=== PATIENT | female | born 1960 | race Caucasian/White ===

== ENCOUNTER 2020-05-28 20:09 | Emergency (ER) | payer OTHER, SELFPAY ==
[2020-05-28] VITALS (16 sets, daily range): BP systolic 140–188; BP diastolic 74–109; PULSE 70–91; RESP 16–35; TEMP 36.9; O2SAT 82–98; BMI 27.4
--- NOTE | 2020-05-28 20:09 | XRR_ITS ---
PROCEDURE INFORMATION: Exam: XR Chest, 1 View Exam date and time: 05/28/2020 8:32 PM Age: 59 years old Clinical indication: Dyspnea; Additional info: Uri TECHNIQUE: Imaging protocol: XR of the chest Views: 1 view. COMPARISON: No relevant prior studies available. FINDINGS: Lungs: Calcified granuloma in the the right lower lobe. Patchy atelectasis versus mild pneumonia in the left lower lobe. Scarring in both lungs. Pleural space: No pleural effusion. No pneumothorax. Heart/Mediastinum: The cardiac silhouette is mildly enlarged. Mediastinal contours are unremarkable. Vasculature: Vascular calcifications in the aorta. Bones/joints: Bones are diffusely osteopenic. Degenerative changes in the spine and shoulders. XR/XR chest 1V portable [id number] IMPRESSION: 1. Patchy atelectasis versus mild pneumonia in the left lower lobe. Recommend clinical correlation. Recommend followup chest x-ray to ensure resolution. 2. Incidental/nonacute findings are listed in the report.
--- NOTE | 2020-05-28 20:51 | ECG_ITS ---
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 Measurements Intervals [place] Rate: 72 P: 75 MT: 156 QRS: 37 QRSD: 93 T: 81 QT: 412 QTc: 453 Interpretive Statements SINUS RHYTHM NONSPECIFIC ST & T-WAVE ABNORMALITY No previous ECG available for comparison Electronically Signed On 05-29-2020 12:43:16 CDT by Katelyn Pollock M.D. [id number]
[2020-05-28 21:02] LABS: Basophils % 0.3 %; Eosinophils # 0.1 10^3/uL (0.0-0.8); Eosinophils % 0.9 %; Hematocrit 42.4 % (37.0-47.0); Hemoglobin 13.5 g/dL (11.5-15.3); Lymphocytes # 1.9 10^3/uL (0.8-4.8); Lymphocytes % 25.3 %; Mean Corpuscular HGB Conc 31.8 g/dL (30.0-36.0); Mean Corpuscular Hemoglobin 28.8 pg (28.0-34.0); Mean Corpuscular Volume 90.6 fL (81-99); Mean Platelet Volume 9.8 fL (7.4-10.4); Monocytes # 0.9 10^3/uL (0.2-0.9); Monocytes % 11.3 %; Neutrophils # 4.72 10^3/uL (1.8-7.7); Neutrophils % 61.8 %; Nucleated Red Blood Cells % 0 %; Platelet Count 325 10^3/cmm (130-400); Red Blood Count 4.68 10^6/uL (4.1-5.3); Red Cell Distribution Width 13.7 % (12.1-15.1); White Blood Count 7.6 10^3/uL (4.0-10.0)
[2020-05-28 21:15] LABS: Lactic Sepsis W/Reflex 0.8 mmol/L (0.5-2.2)
--- NOTE | 2020-05-28 21:20 | ED_ITS ---
HPI - SOB/Dyspnea General: Chief Complaint: Shortness of Breath/Dyspnea Stated Complaint: UPPER RESP ISSUES Time Seen by Provider: 05/28/20 20:26 History of Present Illness: HPI Narrative: 59-year-old female who came by airplane from [place] 2 weeks ago, began to get sick 3 days ago. She has had cough, shortness of breath, and fevers up to 102 at home. She has had some yellow sputum with her cough. No known exposure to coronavirus. MD elicited complaint: shortness of breath Associated symptoms: Reports fever(s); Deny abdominal pain, chest pain, dizziness, nausea, palpitations or vomiting Review of Systems Const: Reports: fever(s) and chills Eyes: Denies: blurry vision ENMT: Reports: post nasal drip; Denies: swelling of lips/tongue, bleeding gums or sinus pain Card: Denies: chest pain, palpitations, irregular heart rhythm or swelling of feet/ankles Resp: Reports: dyspnea and productive cough; Denies: non-productive cough or wheezing GI: Denies: abdominal pain, nausea or vomiting : Denies: dysuria or hematuria Musc: Reports: back pain; Denies: neck pain Skin/Breast: Denies: rash or pruritus Neuro: Denies: headache(s), dizziness or vertigo Psych: Denies: anxiety Physical Exam Const: GENERAL APPEARANCE: well developed ORIENTATION/CONSCIOUSNESS: Yes or iented to person, Yes oriented to place and Yes oriented to time HENMT: COMMON NORMALS: normocephalic, external ears normal and Normal external nose present HEAD & SCALP: normocephalic FACE & SINUS: normal facial exam NOSE: Normal external nose present and No nasal discharge present EXTERNAL EAR: Yes external ears normal MOUTH: tongue normal THROAT: posterior oropharynx normal; no peritonsillar mass Eye: COMMON NORMALS: Equal, round and reactive pupils present, EOMs intact bilaterally and conjunctivae normal EYELID: eyelids normal CONJUNCTIVA: Yes conjunctivae normal PUPIL: Yes Equal, round and reactive pupils present Neck/C-Spine: GENERAL: No tracheal deviation Chest: COMMONS NORMALS: normal inspection of the chest CHEST: No tenderness Resp: COMMON NORMALS: clear to auscultation bilaterally EFFORT & INSPECTION: Yes tachypneic, Yes respiratory distress, No retractions, No uses accessory muscles and No tracheal deviation AUSCULTATION: clear to auscultation bilaterally, no rhonchi, no wheezes and lung sounds not diminished Cardio: COMMON NORMALS: regular rate and regular rhythm RATE: regular rate RHYTHM: regular rhythm HEART SOUNDS: no murmurs PERIPHERAL PULSES: radial pulses present GI: INSPECTION: No abdominal distension AUSCULTATION: No Hyperactive bowel sounds present and No Hypoactive bowel sounds present PALPATION: No Guarding due to palpation present (GI) and No Rigid due to palpation PERCUSSION: no dullness to percussion and no tympanic to percussion Neuro: SENSORIUM/ORIENTATION: Yes oriented to person, Yes oriented to place and Yes oriented to time Psych: COMMON NORMALS: mental status grossly normal Skin: COMMON NORMALS: no rashes or lesions noted GENERAL SKIN EXAM: no rashes or lesions noted Course Vital Signs: Vital signs: Vital Signs Temperature 99.6 F 05/29/20 00:37 Pulse Rate 80 05/29/20 00:37 Respiratory Rate 18 05/29/20 00:37 Blood Pressure 154/80 05/29/20 00:37 Pulse Oximetry 96 05/29/20 00:37 MDM - SOB/Dyspnea MDM Narrative: Medical decision making narrative: 59-year-old patient now on 4 L of oxygen. Saturations are 96 to 97%. Her blood pressure is improved after amlodipine and hydralazine. Blood pressure is 158/79. She feels much better on oxygen. Chest x-ray reveals left lower lobe infiltrate with some patchy haziness bilaterally in the periphery. Her potassium is mildly low. Her other laboratory is benign. She has tested for coronavirus, and is positive. She has a chest x-ray consistent with COVID-19. She is significantly hypoxic. We do have dexamethasone at this institution, but we are unable to get remdesivir at this point. Because of this, the likelihood it will be needed for treatment, she will be transferred to the COVID-19 unit at [facility] in [place]. Dr. Vargas has accepted. Lab Data: Labs: Lab Results 05/28/20 05/28/20 05/28/20 Range/Units 20:50 20:50 20:50 WBC 7.6 (4.0-10.0) 10^3/ uL RBC 4.68 (4.1-5.3) 10^6/u L Hgb 13.5 (11.5-15.3) g/dL Hct 42.4 (37.0-47.0) % MCV 90.6 (81-99) fL MCH 28.8 (28.0-34.0) pg MCHC 31.8 (30.0-36.0) g/dL RDW 13.7 (12.1-15.1) % Plt Count 325 (130-400) 10^3/c mm MPV 9.8 (7.4-10.4) fL Neut % (Auto) 61.8 % Lymph % (Auto) 25.3 % Clinton % (Auto) 11.3 % Eos % (Auto) 0.9 % Baso % (Auto) 0.3 % Neut # (Auto) 4.72 (1.8-7.7) 10^3/u L Lymph # (Auto) 1.9 (0.8-4.8) 10^3/u L Clinton # (Auto) 0.9 (0.2-0.9) 10^3/u L Eos # (Auto) 0.1 (0.0-0.8) 10^3/u L Baso # (Auto) 0.0 (0.0-0.1) 10^3/u L Nucleated RBC % (a uto) 0 % Nucleated RBCs # 0.0 /100WBC Specimen Type Sample Site ABG pH (7.35-7.45) ABG pCO2 (35-45) mmHg ABG pO2 (80.0-100.0) mmH g ABG HCO3 (22-26) mmol/L ABG Base Excess (-2.0-2.0) mmol/ L Elder Test Hematocrit (37-47) % Hgb O2 Saturation (95-100) % Carboxyhemoglobin (0.4-20.1) %THgb Methemoglobin (0.4-1.5) % Total Hemoglobin (12-16) g/dL O2 Delivery Device O2 Liters/Min % FiO2 % Detector Car Operator ID Sodium 137 (136-145) mmol/L Potassium 3.1 L (3.5-5.1) mmol/L Chloride 97 L (98-107) mmol/L Carbon Dioxide 31 H (22-29) mmol/L Anion Gap 12.1 (5-19) BUN 11 (8-23) mg/dL Creatinine 0.8 (0.5-0.9) mg/dL GFR Calculation 72.9 L (90-130) mL/min Glucose 112 (65-115) mg/dL Calculated Osmolal ity 281 L (285-295) mOsm/k g Lactic Acid 0.8 (0.5-2.2) mmol/L Calcium 8.7 (8.5-10.5) mg/dL Total Bilirubin 0.5 (0.15-1.2) mg/dL AST 74 H (0-32) U/L ALT 55 H (0-33) U/L Alkaline Phosphata se 79 (35-105) IU/L C-Reactive Protein (0.0-4.9) mg/L NT-Pro-B Natriuret Pep 977 H (0-125) pg/mL Total Protein 7.3 (6.6-8.7) g/dL Albumin 3.8 (3.5-5.2) g/dL Globulin 3.5 (1.3-4.6) g/dL Procalcitonin (0-0.5) ng/mL SARS-CoV-2 Ag (Rap id) (Negative) 05/28/20 05/28/20 05/28/20 Range/Units 20:50 21:00 21:20 WBC (4.0-10.0) 10^3/ uL RBC (4.1-5.3) 10^6/u L Hgb (11.5-15.3) g/dL Hct (37.0-47.0) % MCV (81-99) fL MCH (28.0-34.0) pg MCHC (30.0-36.0) g/dL RDW (12.1-15.1) % Plt Count (130-400) 10^3/c mm MPV (7.4-10.4) fL Neut % (Auto) % Lymph % (Auto) % Clinton % (Auto) % Eos % (Auto) % Baso % (Auto) % Neut # (Auto) (1.8-7.7) 10^3/u L Lymph # (Auto) (0.8-4.8) 10^3/u L Clinton # (Auto) (0.2-0.9) 10^3/u L Eos # (Auto) (0.0-0.8) 10^3/u L Baso # (Auto) (0.0-0.1) 10^3/u L Nucleated RBC % (a uto) % Nucleated RBCs # /100WBC Specimen Type Arterial Sample Site Radial, left ABG pH 7.47 H (7.35-7.45) ABG pCO2 43.0 (35-45) mmHg ABG pO2 81.1 (80.0-100.0) mmH g ABG HCO3 31.1 H (22-26) mmol/L ABG Base Excess 6.5 H (-2.0-2.0) mmol/ L Elder Test Pos Hematocrit 41.5 (37-47) % Hgb O2 Saturation 93.7 L (95-100) % Carboxyhemoglobin 3.1 (0.4-20.1) %THgb Methemoglobin 0.7 (0.4-1.5) % Total Hemoglobin 13.6 (12-16) g/dL O2 Delivery Device Nc O2 Liters/Min 4.0 % FiO2 36.0 % Detector Car Operator ID [id number] Sodium (136-145) mmol/L Potassium (3.5-5.1) mmol/L Chloride (98-107) mmol/L Carbon Dioxide (22-29) mmol/L Anion Gap (5-19) BUN (8-23) mg/dL Creatinine (0.5-0.9) mg/dL GFR Calculation (90-130) mL/min Glucose (65-115) mg/dL Calculated Osmolal ity (285-295) mOsm/k g Lactic Acid (0.5-2.2) mmol/L Calcium (8.5-10.5) mg/dL Total Bilirubin (0.15-1.2) mg/dL AST (0-32) U/L ALT (0-33) U/L Alkaline Phosphata se (35-105) IU/L C-Reactive Protein 56.0 H (0.0-4.9) mg/L NT-Pro-B Natriuret Pep (0-125) pg/mL Total Protein (6.6-8.7) g/dL Albumin (3.5-5.2) g/dL Globulin (1.3-4.6) g/dL Procalcitonin 0.06 (0-0.5) ng/mL SARS-CoV-2 Ag (Rap id) Positive H (Negative) Discharge Plan Discharge Patient Disposition: Xfer Other Clinical Impression: COVID-19 Respiratory failure Qualifiers: Chronicity: acute Respiratory failure complication: hypoxia Qualified Code(s): J96.01 - Acute respiratory failure with hypoxia Interventions: ED Discharge Assessment Last Done: 05/29/20 00:37 ED Charges Last Done: 05/29/20 00:37 Discharge Date/Time: 05/29/20 01:05 Coding Level of Care Code ED [employer] 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
[2020-05-28 21:25] LABS: Alanine Aminotransferase 55 U/L (0-33); Albumin Level 3.8 g/dL (3.5-5.2); Alkaline Phosphatase 79 IU/L (35-105); Anion Gap 12.1 (5-19); Aspartate Amino Transferase 74 U/L (0-32); Blood Urea Nitrogen 11 mg/dL (8-23); Calcium 8.7 mg/dL (8.5-10.5); Carbon Dioxide 31 mmol/L (22-29); Chloride 97 mmol/L (98-107); Globulin 3.5 g/dL (1.3-4.6); Glomerular Filtration Rate 72.9 mL/min (90-130); Glucose 112 mg/dL (65-115); NT Pro B Type Natriuretic Pept 977 pg/mL (0-125); Osmolality Calculated 281 mOsm/kg (285-295); Potassium 3.1 mmol/L (3.5-5.1); Sodium 137 mmol/L (136-145); Total Bilirubin 0.5 mg/dL (0.15-1.2); Total Protein 7.3 g/dL (6.6-8.7)
[2020-05-28 21:26] LABS: SARS Covid-2 Antigen Positive (Negative)
[2020-05-28 21:30] LABS: ABG PH Result 7.47 (7.35-7.45); Arterial Blood Gas Hematocrit 41.5 % (37-47); Base Excess ABG 6.5 mmol/L (-2.0-2.0); Blood Gas Allen Test Pos; Blood Gas Sample Site Radial, left; Blood Gas Sample Type Arterial; Carboxyhemoglobin 3.1 %THgb (0.4-20.1); HCO3 ABG 31.1 mmol/L (22-26); HGB O2 Sat 93.7 % (95-100); Methemoglobin 0.7 % (0.4-1.5); Oxygen Device NC; PO2 ABG 81.1 mmHg (80.0-100.0); Total Hemoglobin 13.6 g/dL (12-16)
[2020-05-28 21:46] LABS: Slide Review Slide Review Perform
[2020-05-28] MEDS: hyDRALAzine 20 mg/mL INJ 1 mL 10 MG IVP (22:09)
[2020-05-28] MEDS: amlodipine 10 mg Tablet PO (22:10)
[2020-05-28 22:35] LABS: Procalcitonin 0.06 ng/mL (0-0.5)
[2020-05-29] VITALS: BP 150/78; PULSE 75; RESP 20; O2SAT 93
[2020-05-29 00:15] VITALS: BP 143/81; PULSE 77; RESP 19; O2SAT 91
[2020-05-29 00:30] VITALS: BP 154/80; O2SAT 89
[2020-05-29 00:37] VITALS: BP 154/80; PULSE 80; RESP 18; TEMP 37.6; O2SAT 96
== END 2020-05-29 01:05 | disposition other institution (70) ==
PROVIDERS: Emergency Provider Emergency Medicine
DX: U07.1 COVID-19 (principal); J96.01 Acute respiratory failure with hypoxia
CPT/HCPCS: 12345; 36600; 71045; 80053; 82805; 83605; 83880; 84145; 85025; 86140; 87426; 93005; 96374; 99284; 99285; J0360

== ENCOUNTER 2020-06-04 15:49 | Emergency (ER) | payer SELFPAY ==
[2020-06-04 15:58] VITALS: BP 127/78; PULSE 59; RESP 18; TEMP 36.4; O2SAT 94; BMI 21.9
--- NOTE | 2020-06-04 16:14 | CTR_ITS ---
PROCEDURE INFORMATION: Exam: CT Abdomen And Pelvis Without Contrast Exam date and time: 06/04/2020 5:00 PM Age: 59 years old Clinical indication: Constipation and nausea; Prior surgery; Surgery date: 6+ months; Surgery type: Appy, gb, hyst; Patient HX: C/O nausea and constipation; Additional info: Constipation, nausea TECHNIQUE: Imaging protocol: Computed tomography of the abdomen and pelvis without contrast. Radiation optimization: All CT scans at this facility use at least one of these dose optimization techniques: automated exposure control; mA and/or kV adjustment per patient size (includes targeted exams where dose is matched to clinical indication); or iterative reconstruction. COMPARISON: No relevant prior studies available. RADIATION DOSE METRICS: Total DLP (mGy-cm): 483.33 FINDINGS: Lungs: 5 mm left lower lobe nodule. 4 mm lingular nodule. Calcified granulomas in the right lower lobe. Liver: Subcentimeter hypodensities in the liver are too small to characterize but most likely cysts. No follow-up recommended. Gallbladder and bile ducts: Cholecystectomy. Dilatation of the extrahepatic bile ducts is most likely reservoir effect. Pancreas: Normal. No ductal dilation. Spleen: Calcified granulomas in the spleen. Adrenals: Normal. No mass. Kidneys and ureters: Normal. No hydronephrosis. Stomach and bowel: Diverticulosis of the colon without diverticulitis. The stomach and small bowel are unremarkable. Stool in the proximal and transverse colon. The distal colon is decompressed. Appendix: The appendix is absent. Intraperitoneal space: Unremarkable. No free air. No significant fluid collection. Vasculature: Atherosclerotic calcifications. No aneurysm. Lymph nodes: Unremarkable. No enlarged lymph nodes. Bladder: Wynn catheter in a decompressed urinary bladder with wall thickening and gas bubbles. Reproductive: Unremarkable as visualized. Bones/joints: Degenerative spine. No compression fracture. Soft tissues: Unremarkable. CT/CT abdomen pelvis wo con [id number] IMPRESSION: 1. Wall thickening of the urinary bladder could relate to nondistention, but cystitis is not excluded. 2. Diverticulosis of the distal colon. 3. Pulmonary nodules measuring up to 5 mm. For patients at low risk (minimal or absent history of smoking and of other known risk factors), no routine follow-up is indicated. For patients at high risk (history of smoking or of other known risk factors), consider optional CT at 12 months. (MacMahon, et al., Fleischner Society, 2017) Radiation Dose CTDIVOL = (mGy): DLP = 483.33 (mGy-cm)
--- NOTE | 2020-06-04 16:14 | PC.NURSE ---
pt came in CPR in progress. Code continued. See code sheet. TOD [id number]
[2020-06-04 16:47] LABS: Basophils % 0.2 %; Eosinophils # 0.1 10^3/uL (0.0-0.8); Eosinophils % 0.3 %; Hematocrit 47.5 % (37.0-47.0); Hemoglobin 15.6 g/dL (11.5-15.3); Lymphocytes # 3.4 10^3/uL (0.8-4.8); Mean Corpuscular HGB Conc 32.8 g/dL (30.0-36.0); Mean Corpuscular Hemoglobin 28.9 pg (28.0-34.0); Mean Platelet Volume 10.2 fL (7.4-10.4); Monocytes # 1.7 10^3/uL (0.2-0.9); Monocytes % 8.5 %; Neutrophils # 14.52 10^3/uL (1.8-7.7); Neutrophils % 72.8 %; Nucleated Red Blood Cells % 0 %; Platelet Count 567 10^3/cmm (130-400); Red Cell Distribution Width 13.6 % (12.1-15.1); White Blood Count 19.9 10^3/uL (4.0-10.0)
[2020-06-04 17:13] LABS: Alanine Aminotransferase 59 U/L (0-33); Albumin Level 4.1 g/dL (3.5-5.2); Alkaline Phosphatase 85 IU/L (35-105); Anion Gap 13.9 (5-19); Aspartate Amino Transferase 35 U/L (0-32); Carbon Dioxide 29 mmol/L (22-29); Chloride 95 mmol/L (98-107); Creatinine Clr Calc Pharmacy 53.7121; Globulin 3.5 g/dL (1.3-4.6); Glomerular Filtration Rate 63.7 mL/min (90-130); Glucose 229 mg/dL (65-115); Potassium 3.9 mmol/L (3.5-5.1); Sodium 134 mmol/L (136-145); Total Protein 7.6 g/dL (6.6-8.7)
[2020-06-04 17:31] LABS: Blood Urea Nitrogen 38 mg/dL (8-23); Calcium 9.6 mg/dL (8.5-10.5); Osmolality Calculated 283 mOsm/kg (285-295)
[2020-06-04 17:32] LABS: Total Bilirubin 0.5 mg/dL (0.15-1.2)
[2020-06-04] MEDS: sodium chloride 0.9% 1,000 ML 999 ML IV (17:45)
[2020-06-04 17:49] LABS: Glucose Urine UA Norm (Normal); Ketones Urine 1+ (Negative); Protein Urine 1+ (Negative); Specific Gravity, Urine 1.025 (1.005-1.030); Urine Color Yellow (Yellow); pH Urine 5 (5-7)
[2020-06-04 17:50] LABS: Add Urine Microscopic? YES; Bilirubin Urine 1+ (NEGATIVE); Blood Urine 3+ (Negative); Leukocyte Esterase Urine 1+ (Negative); Nitrate Urine Negative (Negative); Urobilinogen Urine 1 mg/dL (Negative)
[2020-06-04 17:53] LABS: RBC Urine 40-50 /hpf (0-2)
[2020-06-04 17:54] LABS: Add Urine Culture? Yes; Bacteria Urine 4+; Hyaline Casts Urine 0-4; WBC Urine 55-80 /hpf (0-5)
[2020-06-04 18:00] VITALS: BP 146/75; PULSE 51; O2SAT 92
[2020-06-04] MEDS: cefTRIAXone 1,000 MG in sodium chloride 0.9% (plus) 50 ML 100 MG IV (18:49)
--- NOTE | 2020-06-04 19:42 | W.ED.FEMALGU ---
HPI - Female Genitourinary General: Chief complaint: Urogenital-Female Stated complaint: COVID POSITIVE/COMPLICATIONS Time Seen by Provider: 06/04/20 16:01 History of Present Illness: HPI Narrative: This patient is a 59-year-old female who presents to the emergency department with complaints of difficulty urinating and difficulty having bowel movements. She was seen in this facility about a week ago and was transferred to [facility] in [place] where she was diagnosed with COVID-19 infection causing respiratory failure. She was discharged from [facility] yesterday but the patient states that she has not had a bowel movement since yesterday and has not urinated since yesterday also. She denies dysuria but has a pressure sensation in the suprapubic region. She denies any fever. She is currently on dexamethasone and oxycodone MD elicited complaint: difficulty urinating Associated symptoms: Deny abdominal pain, headache(s) or nausea Review of Systems General: Reports: 10 or more systems reviewed and unremarkable except in HPI and below Const: Denies: fever(s), chills or body aches Eyes: Denies: change in vision or blurry vision ENMT: Denies: throat pain, enlarged tonsils, odynophagia, hoarseness, mouth pain or swelling of lips/tongue Card: Denies: palpitations, irregular heart rhythm, edema or swelling of feet/ankles Resp: Denies: dyspnea, productive cough or non-productive cough GI: Reports: constipation; Denies: abdominal pain, nausea or vomiting : Reports: difficulty voiding; Denies: flank pain, dysuria, urinary frequency, urinary urgency or urinary hesitancy Musc: Denies: neck pain, back pain or extremity swelling Skin/Breast: Denies: rash, pruritus or erythema Neuro: Denies: headache(s), numbness in extremities or weakness in extremities Endo: Denies: polyuria, polydipsia or tired all the time Physical Exam Const: COMMON NORMALS: no acute distress, average body habitus, patient oriented x3, no limitations, healthy appearing, alert and well nourished Neck/C-Spine: COMMON NORMALS: no meningeal signs and no JVD Resp: COMMON NORMALS: normal respiratory effort, No retractions, No use of accessory muscles, clear to auscultation bilaterally and percussion normal AUSCULTATION: clear to auscultation bilaterally PERCUSSION: percussion normal Cardio: COMMON NORMALS: no JVD, regular rate, regular rhythm, S1 normal heart sound present, S2 normal heart sound present, No gallops present (Cardio), No clicks present (Cardio), No murmurs present (Cardio), No rub (Cardio) and Peripheral pulses 2+ throughout RATE: regular rate RHYTHM: regular rhythm HEART SOUNDS: S1 normal heart sound present and S2 normal heart sound present PERIPHERAL PULSES: Peripheral pulses 2+ throughout GI: COMMON NORMALS: Normal to inspection, nondistended, normoactive bowel sounds present, Soft to palpation, non-tender, No hepatosplenomegaly present, no masses and no bruits PALPATION: Yes Soft to palpation and Yes No hepatosplenomegaly present : COMMON NORMALS: Yes no CVA tenderness BLADDER/KIDNEY EXAM: Yes no CVA tenderness Back/Pelvis: COMMON NORMALS: no CVA tenderness Extremity: COMMON NORMALS: normal to inspection, full ROM, capillary refill normal, no calf tenderness and no pedal edema Neuro: COMMON NORMALS: patient oriented x3 SENSORIUM/ORIENTATION: Yes alert MENINGEAL SIGNS: Yes no meningeal signs Skin: COMMON NORMALS: no rashes or lesions noted, no wounds, turgor normal, no jaundice, no petechiae and no mottling GENERAL SKIN EXAM: no rashes or lesions noted and turgor normal Course Reevaluation(s): Reevaluation #1: Discussed her lab findings with her as well as her imaging findings. White cell count elevated which may be secondary to the steroids that she is taking, hemoglobin also elevated which I think is from hemoconcentration. BUN is elevated and BUN/creatinine ratio is greater than 20. Urinalysis is consistent with a urinary tract infection. I do believe her sensation of incomplete void or inability to void is probably some sort of dysuria. The patient states she feels a whole lot better since the Wynn catheter was placed. She has made urine in the emergency department here and she has also had a bowel movement. CT scan unremarkable other than likely UTI. She has a small pulmonary nodule. She will be discharged home with a prescription for oral antibiotics and she voiced understanding and is in agreement with the plan. Time: 19:43 Vital Signs: Vital signs: Vital Signs Temperature 97.6 F 06/04/20 15:58 Pulse Rate 56 L 06/04/20 20:31 Respiratory Rate 16 06/04/20 20:31 Blood Pressure 138/81 06/04/20 20:31 Pulse Oximetry 92 06/04/20 20:31 MDM - Female MDM Narrative: Medical decision making narrative: Patient was discharged from the hospital yesterday following a COVID-19 pneumonia and respiratory failure. She complains today with difficulty urinating and having a bowel movement. Evaluation in the ED showed she had a UTI and she was given a dose of intravenous ceftriaxone and discharged home with a prescription for nitrofurantoin. She is to follow-up with her primary care provider. Medical Records: Attestation: I reviewed the patient's medical records. Lab Data: Attestation: I reviewed the patient's lab results. Labs: Lab Results 06/04/20 06/04/20 06/04/20 Range/Units 16:40 16:40 16:48 WBC 19.9 H (4.0-10.0) 10^3/ uL RBC 5.40 H (4.1-5.3) 10^6/u L Hgb 15.6 H (11.5-15.3) g/dL Hct 47.5 H (37.0-47.0) % MCV 88.0 (81-99) fL MCH 28.9 (28.0-34.0) pg MCHC 32.8 (30.0-36.0) g/dL RDW 13.6 (12.1-15.1) % Plt Count 567 H (130-400) 10^3/c mm MPV 10.2 (7.4-10.4) fL Neut % (Auto) 72.8 % Lymph % (Auto) 17.0 % Kaufman % (Auto) 8.5 % Eos % (Auto) 0.3 % Baso % (Auto) 0.2 % Neut # (Auto) 14.52 H (1.8-7.7) 10^3/u L Lymph # (Auto) 3.4 (0.8-4.8) 10^3/u L Kaufman # (Auto) 1.7 H (0.2-0.9) 10^3/u L Eos # (Auto) 0.1 (0.0-0.8) 10^3/u L Baso # (Auto) 0.0 (0.0-0.1) 10^3/u L Nucleated RBC % (a uto) 0 % Nucleated RBCs # 0.0 /100WBC Sodium 134 L (136-145) mmol/L Potassium 3.9 (3.5-5.1) mmol/L Chloride 95 L (98-107) mmol/L Carbon Dioxide 29 (22-29) mmol/L Anion Gap 13.9 (5-19) BUN 38 H (8-23) mg/dL Creatinine 0.9 (0.5-0.9) mg/dL GFR Calculation 63.7 L (90-130) mL/min Glucose 229 H (65-115) mg/dL Calculated Osmolal ity 283 L (285-295) mOsm/k g Calcium 9.6 (8.5-10.5) mg/dL Total Bilirubin 0.5 (0.15-1.2) mg/dL AST 35 H (0-32) U/L ALT 59 H (0-33) U/L Alkaline Phosphata se 85 (35-105) IU/L Total Protein 7.6 (6.6-8.7) g/dL Albumin 4.1 (3.5-5.2) g/dL Globulin 3.5 (1.3-4.6) g/dL Urine Color Yellow (Yellow) Urine Appearance Sl cloudy A (CLEAR) Urine pH 5 (5-7) Ur Specific Gravit y 1.025 (1.005-1.030) Urine Protein 1+ H (Negative) Urine Glucose (UA) Norm (Normal) Urine Ketones 1+ H (Negative) Urine Blood 3+ H (Negative) Urine Nitrate Negative (Negative) Urine Bilirubin 1+ H (NEGATIVE) Urine Urobilinogen 1 H (Negative) mg/dL Ur Leukocyte Sara ase 1+ H (Negative) Urine RBC 40-50 H (0-2) /hpf Urine WBC 55-80 H (0-5) /hpf Ur Squamous Epith Cells 5-10 H (0-5) Amorphous Sediment Not Reportable Urine Bacteria 4+ H (NONE) Hyaline Casts 0-4 H Imaging Data: CT Abd/Pel: Radiologist's impression: [address] [address] [address] Scan Report Signed Patient: Yahaira Lui AUnit #: [id number] : 8Acct#:[id number] Age/Sex: 59 / FADM Date: 06/04/20 Loc: ERRoom/Bed: Attending Dr: Ordering Provider/Ordering MD: Dung Boswell [place] [facility] [place] of Service: 06/04/20 Procedure(s): CT abdomen pelvis [facility] [address] Accession Number(s): [id number] Report Number: [id number] PROCEDURE INFORMATION: Exam: CT Abdomen And Pelvis Without Contrast Exam date and time: 06/04/2020 5:00 PM Age: 59 years old Clinical indication: Constipation and nausea; Prior surgery; Surgery date: 6+ months; Surgery type: Appy, gb, hyst; Patient HX: C/O nausea and constipation; Additional info: Constipation, nausea TECHNIQUE: Imaging protocol: Computed tomography of the abdomen and pelvis without contrast. Radiation optimization: All CT scans at this facility use at least one of these dose optimization techniques: automated exposure control; mA and/or kV adjustment per patient size (includes targeted exams where dose is matched to clinical indication); or iterative reconstruction. COMPARISON: No relevant prior studies available. RADIATION DOSE METRICS: Total DLP (mGy-cm): 483.33 FINDINGS: Lungs: 5 mm left lower lobe nodule. 4 mm lingular nodule. Calcified granulomas in the right lower lobe. Liver: Subcentimeter hypodensities in the liver are too small to characterize but most likely cysts. No follow-up recommended. Gallbladder and bile ducts: Cholecystectomy. Dilatation of the extrahepatic bile ducts is most likely reservoir effect. Pancreas: Normal. No ductal dilation. Spleen: Calcified granulomas in the spleen. Adrenals: Normal. No mass. Kidneys and ureters: Normal. No hydronephrosis. Stomach and bowel: Diverticulosis of the colon without diverticulitis. The stomach and small bowel are unremarkable. Stool in the proximal and transverse colon. The distal colon is decompressed. Appendix: The appendix is absent. Intraperitoneal space: Unremarkable. No free air. No significant fluid collection. Vasculature: Atherosclerotic calcifications. No aneurysm. Lymph nodes: Unremarkable. No enlarged lymph nodes. Bladder: Wynn catheter in a decompressed urinary bladder with wall thickening and gas bubbles. Reproductive: Unremarkable as visualized. Bones/joints: Degenerative spine. No compression fracture. Soft tissues: Unremarkable. CT/CT abdomen pelvis wo con [id number] IMPRESSION: 1. Wall thickening of the urinary bladder could relate to nondistention, but cystitis is not excluded. 2. Diverticulosis of the distal colon. 3. Pulmonary nodules measuring up to 5 mm. For patients at low risk (minimal or absent history of smoking and of other known risk factors), no routine follow-up is indicated. For patients at high risk (history of smoking or of other known risk factors), consider optional CT at 12 months. (xavier Contreras., Fleischner Society, 2017) Radiation Dose CTDIVOL = (mGy): DLP = 483.33 (mGy-cm) Dictated By:Houston Kaminski Signed By:Hemanth Kaminski Date/Time:06/04/201805 DD/ 02 CXR: Radiologist's impression: [place] [address] XRay Report Signed Patient: Yahaira Lui AUnit #: [id number] : 8Acct#:[id number] Age/Sex: 59 / FADM Date: 05/28/20 Loc: ERRoom/Bed: Attending Dr: Ordering Provider/Ordering MD: Vinicius Banuelos MD Date of Service: 05/28/20 Procedure(s): XR chest 1V portable [id number] Accession Number(s): [id number] Report Number: [id number] PROCEDURE INFORMATION: Exam: XR Chest, 1 View Exam date and time: 05/28/2020 8:32 PM Age: 59 years old Clinical indication: Dyspnea; Additional info: Uri TECHNIQUE: Imaging protocol: XR of the chest Views: 1 view. COMPARISON: No relevant prior studies available. FINDINGS: Lungs: Calcified granuloma in the the right lower lobe. Patchy atelectasis versus mild pneumonia in the left lower lobe. Scarring in both lungs. Pleural space: No pleural effusion. No pneumothorax. Heart/Mediastinum: The cardiac silhouette is mildly enlarged. Mediastinal contours are unremarkable. Vasculature: Vascular calcifications in the aorta. Bones/joints: Bones are diffusely osteopenic. Degenerative changes in the spine and shoulders. XR/XR chest 1V portable [id number] IMPRESSION: 1. Patchy atelectasis versus mild pneumonia in the left lower lobe. Recommend clinical correlation. Recommend followup chest x-ray to ensure resolution. 2. Incidental/nonacute findings are listed in the report. Dictated By:Bonita Tan MD Signed By:Bonita Tanigned Date/Time:05/28/202127 DD/ 25 Discharge Plan Discharge Patient Disposition: Home Clinical Impression: Cystitis, COVID-19 Condition: Stable Prescriptions: New nitrofurantoin macrocrystal 100 mg capsule 100 mg PO BID 7 Days Qty: 14 RF: 0 Continued aspirin 325 mg Tablet 325 mg PO DAILY RF: 0 dexamethasone 6 mg Tablet 6 mg PO DAILY RF: 0 oxycodone 15 mg Tablet 15 mg PO Q4H PRN (Reason: Pain) RF: 0 amlodipine 10 mg Tablet 10 mg PO DAILY RF: 0 lisinopril-hydrochlorothiazide 20-25 mg Tablet 1 tab PO DAILY RF: 0 Discharge Orders: Discharge Order (Routine); Ordered 06/04/20 Ordered By: Dung Boswell Discharge Diet: Usual diet Discharge Activity: Increase activity as tolerated Patient Instructions: Urinary Tract Infection - Women Activity Restrictions/Additional Instructions: Return for any new or worsening symptoms. Follow-up with your primary care provider within 1 week. Take the antibiotic as prescribed. Take your other medicines that you were given for your COVID-19. Discharge Date/Time: 06/04/20 20:35 Coding Level of Care Code ED [place] [employer] Operator for Gary Martin
[2020-06-04 19:49] VITALS: RESP 16
[2020-06-04 20:31] VITALS: BP 138/81; PULSE 56; RESP 16; O2SAT 92
== END 2020-06-04 20:35 | disposition home or self-care (01) ==
PROVIDERS: Emergency Provider Family Medicine
DX: N30.90 Cystitis, unspecified without hematuria (principal); U07.1 COVID-19; Z79.82 Long term (current) use of aspirin
CPT/HCPCS: 12345; 36415; 51702; 74176; 80053; 81001; 85025; 87077; 87086; 87186; 96360; 96365; 99283; J0696; J7030

== ENCOUNTER 2020-06-09 20:10 | Emergency (ER) | payer SELFPAY | END 2020-06-09 21:11 | disposition left against medical advice (07) | LOC: ER 20:14 | PROVIDERS: Emergency Provider Emergency Medicine | DX: Z53.21 Procedure and treatment not carried out due to patient leaving prior to being seen by health care provider (principal) | CPT/HCPCS: 99281 ==

== ENCOUNTER 2020-06-10 17:28 | Emergency (ER) | payer OTHER, SELFPAY ==
[2020-06-10 17:44] VITALS: BP 125/101; PULSE 106; RESP 20; O2SAT 95; BMI 27.4
--- NOTE | 2020-06-10 17:50 | XR_ITS ---
WS: [id number] EXAM: AP CHEST: PORTABLE UPRIGHT DATE OF EXAM: 06/10/2020, 1814 hours COMPARISON: Chest x-ray from February 26, 2020. HISTORY: Patient is 60 years old with shortness of breath. FINDINGS: The cardiac silhouette is normal in size. The mediastinal contours are normal. The pulmonary vas cularity is normal. Chronic lung changes seen. Coarse interstitial markings bilaterally suggesting s ome degree of fibrosis. No area of consolidation. There is no effusion or pneumothorax. No acute carmen [place] abnormality is seen. XR/XR chest 1V portable [id number] IMPRESSION: Chronic lung changes with slight hyperinflation and suspected some degree of fi brosis. No consolidating infiltrate.
--- NOTE | 2020-06-10 17:57 | ED_ITS ---
HPI - SOB/Dyspnea General: Chief Complaint: Shortness of Breath/Dyspnea Stated Complaint: covid +, weakness Time Seen by Provider: 06/10/20 17:48 Source: patient Mode of arrival: ambulatory Limitations: no limitations History of Present Illness: HPI Narrative: 60-year-old female states she tested positive for COVID 10 days ago. She states she had increasing shortness of breath over the last 2 days. Patient does have a history of COPD. She is not requiring any oxygen here and room air saturation is 97%. She had a slight cough. Denies any fevers. Denies any worsening improving factors. Associated symptoms: Deny abdominal pain, chest pain, fever(s), nausea or vomiting Review of Systems Const: Denies: fever(s), chills, body aches or change in appetite Eyes: Denies: blurry vision or eye discomfort ENMT: Denies: throat pain or dental pain Card: Denies: chest pain Resp: Reports: dyspnea GI: Denies: abdominal pain, nausea, vomiting or diarrhea : Denies: dysuria Musc: Denies: neck pain or back pain Skin/Breast: Denies: rash Neuro: Denies: headache(s) Psych: Denies: depression Austyn/Lymph: Denies: easy bruising All/Imm: Denies: urticaria Physical Exam Const: COMMON NORMALS: no acute distress, patient oriented x3 and healthy appearing HENMT: COMMON NORMALS: normocephalic and atraumatic HEAD & SCALP: normocephalic and atraumatic Eye: COMMON NORMALS: Equal, round and reactive pupils present and EOMs intact bilaterally PUPIL: Yes Equal, round and reactive pupils present Neck/C-Spine: COMMON NORMALS: full ROM and supple Chest: COMMONS NORMALS: normal inspection of the chest and normal palpation of entire chest wall Resp: COMMON NORMALS: normal respiratory effort, No retractions, No use of accessory muscles and clear to auscultation bilaterally AUSCULTATION: clear to auscultation bilaterally Cardio: COMMON NORMALS: regular rate, regular rhythm and No murmurs present (Cardio) RATE: regular rate RHYTHM: regular rhythm GI: COMMON NORMALS: Normal to inspection, nondistended, normoactive bowel sounds present, Soft to palpation, non-tender and no masses PALPATION: Yes Soft to palpation Extremity: COMMON NORMALS: normal to inspection and full ROM Neuro: COMMON NORMALS: patient oriented x3, moves all extremities and no focal motor deficits Psych: COMMON NORMALS: mental status grossly normal, Normal thought process present and cooperative THOUGHT PROCESS: Normal thought process present Skin: COMMON NORMALS: no rashes or lesions noted and no wounds GENERAL SKIN EXAM: no rashes or lesions noted Course Vital Signs: Vital signs: Vital Signs Pulse Rate 106 H 06/10/20 17:44 Respiratory Rate 20 H 06/10/20 17:44 Blood Pressure 125/101 06/10/20 17:44 Pulse Oximetry 93 06/10/20 18:28 MDM - SOB/Dyspnea MDM Narrative: Medical decision making narrative: Patient presents here with shortness of breath likely from coronavirus. Patient is not requiring any oxygen here in her laceration saturation is 95% on room air. Patient's x-ray shows no pneumonia. I did offer her admission for observation. She states she would rather go home. I did give her Decadron and will dispense with an albuterol inhaler. We will place her on azithromycin. She is to return if worsening. She understands and agrees to the plan. Lab Data: Labs: Lab Results 06/10/20 06/10/20 06/10/20 Range/Units 18:45 18:45 18:45 WBC 11.3 H (4.0-10.0) 10^3/ uL RBC 4.44 (4.1-5.3) 10^6/u L Hgb 12.9 (11.5-15.3) g/dL Hct 39.9 (37.0-47.0) % MCV 89.9 (81-99) fL MCH 29.1 (28.0-34.0) pg MCHC 32.3 (30.0-36.0) g/dL RDW 13.8 (12.1-15.1) % Plt Count 366 (130-400) 10^3/c mm MPV 10.5 H (7.4-10.4) fL Neut % (Auto) 76.4 % Lymph % (Auto) 14.0 % Mariposa % (Auto) 8.0 % Eos % (Auto) 0.5 % Baso % (Auto) 0.7 % Neut # (Auto) 8.65 H (1.8-7.7) 10^3/u L Lymph # (Auto) 1.6 (0.8-4.8) 10^3/u L Mariposa # (Auto) 0.9 (0.2-0.9) 10^3/u L Eos # (Auto) 0.1 (0.0-0.8) 10^3/u L Baso # (Auto) 0.1 (0.0-0.1) 10^3/u L Nucleated RBC % (a uto) 0 % Nucleated RBCs # 0.0 /100WBC Fibrinogen 754 H (174-498) mg/dL Sodium 140 (136-145) mmol/L Potassium 3.9 (3.5-5.1) mmol/L Chloride 105 (98-107) mmol/L Carbon Dioxide 26 (22-29) mmol/L Anion Gap 12.9 (5-19) BUN 13 (8-23) mg/dL Creatinine 0.7 (0.5-0.9) mg/dL GFR Calculation 84.8 L (90-130) mL/min Glucose 260 H (65-115) mg/dL Calculated Osmolal ity 295 (285-295) mOsm/k g Lactic Acid (0.5-2.2) mmol/L Calcium 8.5 (8.5-10.5) mg/dL Ferritin 326 H (15-150) ng/mL Total Bilirubin 0.2 (0.15-1.2) mg/dL AST 21 (0-32) U/L ALT 27 (0-33) U/L Alkaline Phosphata se 79 (35-105) IU/L C-Reactive Protein 74.0 H (0.0-4.9) mg/L Total Protein 7.3 (6.6-8.7) g/dL Albumin 3.6 (3.5-5.2) g/dL Globulin 3.7 (1.3-4.6) g/dL 06/10/20 Range/Units 18:45 WBC (4.0-10.0) 10^3/ uL RBC (4.1-5.3) 10^6/u L Hgb (11.5-15.3) g/dL Hct (37.0-47.0) % MCV (81-99) fL MCH (28.0-34.0) pg MCHC (30.0-36.0) g/dL RDW (12.1-15.1) % Plt Count (130-400) 10^3/c mm MPV (7.4-10.4) fL Neut % (Auto) % Lymph % (Auto) % Mariposa % (Auto) % Eos % (Auto) % Baso % (Auto) % Neut # (Auto) (1.8-7.7) 10^3/u L Lymph # (Auto) (0.8-4.8) 10^3/u L Mariposa # (Auto) (0.2-0.9) 10^3/u L Eos # (Auto) (0.0-0.8) 10^3/u L Baso # (Auto) (0.0-0.1) 10^3/u L Nucleated RBC % (a uto) % Nucleated RBCs # /100WBC Fibrinogen (174-498) mg/dL Sodium (136-145) mmol/L Potassium (3.5-5.1) mmol/L Chloride (98-107) mmol/L Carbon Dioxide (22-29) mmol/L Anion Gap (5-19) BUN (8-23) mg/dL Creatinine (0.5-0.9) mg/dL GFR Calculation (90-130) mL/min Glucose (65-115) mg/dL Calculated Osmolal ity (285-295) mOsm/k g Lactic Acid 1.5 (0.5-2.2) mmol/L Calcium (8.5-10.5) mg/dL Ferritin (15-150) ng/mL Total Bilirubin (0.15-1.2) mg/dL AST (0-32) U/L ALT (0-33) U/L Alkaline Phosphata se (35-105) IU/L C-Reactive Protein (0.0-4.9) mg/L Total Protein (6.6-8.7) g/dL Albumin (3.5-5.2) g/dL Globulin (1.3-4.6) g/dL Imaging Data^: CXR: Radiologist's impression: [address] [address] XRay Report Signed Patient: Yahaira Lui Unit #: [id number] : 1960 Acct#:[id number] Age/Sex: 60 / F ADM Date: 06/10/20 Loc: ER Room/Bed: Attending Dr: Ordering Provider/Ordering MD: Vinicius Banuelos MD Date of Service: 06/10/20 Procedure(s): XR chest 1V portable [id number] Accession Number(s): [id number] Report Number: [id number] WS: [id number] EXAM: AP CHEST: PORTABLE UPRIGHT DATE OF EXAM: 06/10/2020, 1814 hours COMPARISON: Chest x-ray from February 26, 2020. HISTORY: Patient is 60 years old with shortness of breath. FINDINGS: The cardiac silhouette is normal in size. The mediastinal contours are normal. The pulmonary vascularity is normal. Chronic lung changes seen. Coarse interstitial markings bilaterally suggesting some degree of fibrosis. No area of consolidation. There is no effusion or pneumothorax. No acute bony abnormality is seen. XR/XR chest 1V portable [id number] IMPRESSION: Chronic lung changes with slight hyperinflation and suspected some degree of fibrosis. No consolidating infiltrate. Discharge Plan Discharge Patient Disposition: Home Clinical Impression: COVID-19 Condition: Stable Prescriptions: New azithromycin 250 mg tablet See Rx Instructions .ROUTE .COMPLEX Qty: 6 RF: 0 No Action aspirin 325 mg Tablet 325 mg PO DAILY RF: 0 dexamethasone 6 mg Tablet 6 mg PO DAILY RF: 0 oxycodone 15 mg Tablet 15 mg PO Q4H PRN (Reason: Pain) RF: 0 amlodipine 10 mg Tablet 10 mg PO DAILY RF: 0 lisinopril-hydrochlorothiazide 20-25 mg Tablet 1 tab PO DAILY RF: 0 nitrofurantoin macrocrystal 100 mg capsule 100 mg PO BID 7 Days Qty: 14 RF: 0 Discharge Orders: Discharge Order (Routine); Ordered 06/10/20 Ordered By: Vinicius Banuelos Discharge Diet: Advance as tolerated Discharge Activity: Resume usual activity Patient Instructions: Upper Respiratory Infection (ED) Coding Level of Care Code ED Transmission Builder for Chg 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
[2020-06-10 18:28] VITALS: O2SAT 93
[2020-06-10] MEDS: dexamethasone 10 mg/mL INJ IVP (18:40)
[2020-06-10 18:51] LABS: Basophils # 0.1 10^3/uL (0.0-0.1); Basophils % 0.7 %; Eosinophils # 0.1 10^3/uL (0.0-0.8); Eosinophils % 0.5 %; Hematocrit 39.9 % (37.0-47.0); Hemoglobin 12.9 g/dL (11.5-15.3); Lymphocytes # 1.6 10^3/uL (0.8-4.8); Mean Corpuscular HGB Conc 32.3 g/dL (30.0-36.0); Mean Corpuscular Hemoglobin 29.1 pg (28.0-34.0); Mean Corpuscular Volume 89.9 fL (81-99); Mean Platelet Volume 10.5 fL (7.4-10.4); Monocytes # 0.9 10^3/uL (0.2-0.9); Neutrophils # 8.65 10^3/uL (1.8-7.7); Neutrophils % 76.4 %; Nucleated Red Blood Cells % 0 %; Platelet Count 366 10^3/cmm (130-400); Red Blood Count 4.44 10^6/uL (4.1-5.3); Red Cell Distribution Width 13.8 % (12.1-15.1); White Blood Count 11.3 10^3/uL (4.0-10.0)
[2020-06-10 19:03] LABS: Fibrinogen 754 mg/dL (174-498)
[2020-06-10 19:08] LABS: Alanine Aminotransferase 27 U/L (0-33); Albumin Level 3.6 g/dL (3.5-5.2); Alkaline Phosphatase 79 IU/L (35-105); Anion Gap 12.9 (5-19); Aspartate Amino Transferase 21 U/L (0-32); Blood Urea Nitrogen 13 mg/dL (8-23); Calcium 8.5 mg/dL (8.5-10.5); Carbon Dioxide 26 mmol/L (22-29); Chloride 105 mmol/L (98-107); Creatinine Clr Calc Pharmacy 75.3447; Ferritin 326 ng/mL (15-150); Globulin 3.7 g/dL (1.3-4.6); Glomerular Filtration Rate 84.8 mL/min (90-130); Glucose 260 mg/dL (65-115); Osmolality Calculated 295 mOsm/kg (285-295); Potassium 3.9 mmol/L (3.5-5.1); Sodium 140 mmol/L (136-145); Total Bilirubin 0.2 mg/dL (0.15-1.2); Total Protein 7.3 g/dL (6.6-8.7)
[2020-06-10 19:09] LABS: Lactic Sepsis W/Reflex 1.5 mmol/L (0.5-2.2)
--- NOTE | 2020-06-10 19:11 | PC.NURSE ---
REPORT RECEIVED FROM [facility] TRAN AND CARE TRANSFERRED TO ASHISH STEPHENS
[2020-06-10 19:48] VITALS: PULSE 88; RESP 18; O2SAT 95
[2020-06-10 19:55] VITALS: BP 184/105; PULSE 86; RESP 18; O2SAT 93
== END 2020-06-10 19:44 | disposition home or self-care (01) ==
PROVIDERS: Emergency Provider Emergency Medicine
DX: U07.1 COVID-19 (principal); Z79.82 Long term (current) use of aspirin
CPT/HCPCS: 12345; 71045; 80053; 82728; 83605; 85025; 85384; 86140; 87040; 94640; 96374; 96375; 99282; 99284; J1100; J3535

== ENCOUNTER 2020-07-29 17:35 | Emergency (ER) | payer SELFPAY ==
[2020-07-29 17:51] VITALS: BP 225/96; PULSE 89; RESP 18; TEMP 36.8; O2SAT 94; BMI 28.5
--- NOTE | 2020-07-29 18:02 | ED_ITS ---
Documented by User: Alex Zuñiga DO 07/30/20 06:53 HPI - SOB/Dyspnea General: Chief Complaint: Shortness of Breath/Dyspnea Stated Complaint: TESTED COVID+ 2 MONTHS AGO,AROUND GRNDDTR Time Seen by Provider: 07/29/20 18:01 History of Present Illness: HPI Narrative: 60-year-old female presents with complaint of some mild shortness of breath she denies any chest pain. Her monitor was reading low at home. 2 months ago she had been treated for COVID and was actually transferred to [facility] she is doing much better today. However she is not been able to get her medications for over 2 months now. Blood pressure is markedly elevated. She was largely concerned that she had contracted COVID again. MD elicited complaint: shortness of breath and cough Pertinent past history: COPD Onset (ago): hour(s) Context: recent illness Timing: intermittent Severity: mild Exacerbating factors: exertion Relieving factors: rest Known history of: COPD Associated symptoms: Deny abdominal pain, chest pain, fever(s), nausea, orthopnea or vomiting Treatment prior to arrival: none Review of Systems Const: Denies: fever(s), chills, body aches, change in appetite, fatigue or malaise ENMT: Denies: throat pain, ear or mastoid pain, nasal discharge or nasal congestion Card: Denies: chest pain, edema, dyspnea on exertion or orthopnea Resp: Denies: dyspnea, productive cough or non-productive cough GI: Denies: abdominal pain, nausea, vomiting, hematemesis, coffee ground emesis, diarrhea, constipation, bloating, hematochezia or melena : Denies: flank pain, difficulty voiding, dysuria, urinary frequency or urinary urgency Skin/Breast: Denies: rash or pruritus [facility] PFSH: Medical History (Updated 07/30/20 @ 06:53 by Alex Zuñiga DO) COPD (chronic obstructive pulmonary disease) COVID-19 Hypertension Physical Exam Const: COMMON NORMALS: no acute distress GENERAL APPEARANCE: cooperative and comfortable ORIENTATION/CONSCIOUSNESS: Yes awake, Yes oriented to person, Yes oriented to place and Yes oriented to time HENMT: COMMON NORMALS: normocephalic, atraumatic and hearing grossly normal bilaterally HEAD & SCALP: normocephalic and atraumatic Neck/C-Spine: COMMON NORMALS: no JVD Resp: COMMON NORMALS: normal respiratory effort, No retractions, No use of accessory muscles and clear to auscultation bilaterally AUSCULTATION: clear to auscultation bilaterally Cardio: COMMON NORMALS: no JVD, regular rate, regular rhythm and No murmurs present (Cardio) RATE: regular rate RHYTHM: regular rhythm GI: COMMON NORMALS: Soft to palpation and No hepatosplenomegaly present AUSCULTATION: Yes normoactive bowel sounds PALPATION: Yes Soft to palpation, No Tenderness to palpation present (GI), No Guarding due to palpation present (GI) and Yes No hepatosplenomegaly present Extremity: COMMON NORMALS: normal to inspection, capillary refill normal, no clubbing, cyanosis or edema, no calf tenderness and no pedal edema Neuro: SENSORIUM/ORIENTATION: Yes oriented to person, Yes oriented to place and Yes oriented to time Skin: COMMON NORMALS: no rashes or lesions noted GENERAL SKIN EXAM: no rashes or lesions noted Course Vital Signs: Vital signs: Vital Signs Temperature 98.3 F 07/29/20 17:51 Pulse Rate 71 07/30/20 00:01 Respiratory Rate 16 07/30/20 00:01 Blood Pressure 108/89 07/30/20 00:01 Pulse Oximetry 91 07/30/20 00:01 MDM - SOB/Dyspnea MDM Narrative: Medical decision making narrative: Evaluating the patient there is no evidence of respiratory compromise however blood pressure is markedly elevated. Since she has known previously COVID recently she is not to be need to be retested however she does need to have her blood pressure stabilized and restarted on her medications. Patient care turned over to Dr. Davis at change of shift Lab Data: Labs: Lab Results 07/29/20 07/29/20 07/29/20 Range/Units 20:10 20:10 20:10 WBC 9.7 (4.0-10.0) 10^3/ uL RBC 4.99 (4.1-5.3) 10^6/u L Hgb 14.7 (11.5-15.3) g/dL Hct 46.3 (37.0-47.0) % MCV 92.8 (81-99) fL MCH 29.5 (28.0-34.0) pg MCHC 31.7 (30.0-36.0) g/dL RDW 14.8 (12.1-15.1) % Plt Count 295 (130-400) 10^3/c mm MPV 10.2 (7.4-10.4) fL Neut % (Auto) 57.5 % Lymph % (Auto) 28.0 % Gosper % (Auto) 8.9 % Eos % (Auto) 4.6 % Baso % (Auto) 0.8 % Neut # (Auto) 5.56 (1.8-7.7) 10^3/u L Lymph # (Auto) 2.7 (0.8-4.8) 10^3/u L Gosper # (Auto) 0.9 (0.2-0.9) 10^3/u L Eos # (Auto) 0.5 (0.0-0.8) 10^3/u L Baso # (Auto) 0.1 (0.0-0.1) 10^3/u L Nucleated RBC % (a uto) 0 % Nucleated RBCs # 0.0 /100WBC Specimen Type Sample Site ABG pH (7.35-7.45) ABG pCO2 (35-45) mmHg ABG pO2 (80.0-100.0) mmH g ABG HCO3 (22-26) mmol/L ABG Base Excess (-2.0-2.0) mmol/ L Elder Test Hematocrit (37-47) % O2 Delivery Device Linen Tech ID Sodium 141 (136-145) mmol/L Potassium 3.9 (3.5-5.1) mmol/L Chloride 104 (98-107) mmol/L Carbon Dioxide 26 (22-29) mmol/L Anion Gap 14.9 (5-19) BUN 23 (8-23) mg/dL Creatinine 0.8 (0.5-0.9) mg/dL GFR Calculation 72.7 L (90-130) mL/min Glucose 139 H (65-115) mg/dL Calculated Osmolal ity 298 H (285-295) mOsm/k g Calcium 10.0 (8.5-10.5) mg/dL Total Bilirubin 0.2 (0.15-1.2) mg/dL AST 17 (0-32) U/L ALT 16 (0-33) U/L Alkaline Phosphata se 80 (35-105) IU/L Troponin T Baselin e 8 (0-10) ng/L Troponin T 120 Min tazlina (0-10) ng/L Delta Troponin T (0-10) ABS# Total Protein 7.5 (6.6-8.7) g/dL Albumin 4.5 (3.5-5.2) g/dL Globulin 3.0 (1.3-4.6) g/dL 07/29/20 07/29/20 Range/Units 21:30 22:21 WBC (4.0-10.0) 10^3/ uL RBC (4.1-5.3) 10^6/u L Hgb (11.5-15.3) g/dL Hct (37.0-47.0) % MCV (81-99) fL MCH (28.0-34.0) pg MCHC (30.0-36.0) g/dL RDW (12.1-15.1) % Plt Count (130-400) 10^3/c mm MPV (7.4-10.4) fL Neut % (Auto) % Lymph % (Auto) % Gosper % (Auto) % Eos % (Auto) % Baso % (Auto) % Neut # (Auto) (1.8-7.7) 10^3/u L Lymph # (Auto) (0.8-4.8) 10^3/u L Gosper # (Auto) (0.2-0.9) 10^3/u L Eos # (Auto) (0.0-0.8) 10^3/u L Baso # (Auto) (0.0-0.1) 10^3/u L Nucleated RBC % (a uto) % Nucleated RBCs # /100WBC Specimen Type Arterial Sample Site Radial, right ABG pH 7.42 (7.35-7.45) ABG pCO2 39.7 (35-45) mmHg ABG pO2 58.6 L (80.0-100.0) mmH g ABG HCO3 25.9 (22-26) mmol/L ABG Base Excess 1.4 (-2.0-2.0) mmol/ L Elder Test Pos Hematocrit 46.4 (37-47) % O2 Delivery Device Room air Linen Tech ID Hinja Sodium (136-145) mmol/L Potassium (3.5-5.1) mmol/L Chloride (98-107) mmol/L Carbon Dioxide (22-29) mmol/L Anion Gap (5-19) BUN (8-23) mg/dL Creatinine (0.5-0.9) mg/dL GFR Calculation (90-130) mL/min Glucose (65-115) mg/dL Calculated Osmolal ity (285-295) mOsm/k g Calcium (8.5-10.5) mg/dL Total Bilirubin (0.15-1.2) mg/dL AST (0-32) U/L ALT (0-33) U/L Alkaline Phosphata se (35-105) IU/L Troponin T Baselin e (0-10) ng/L Troponin T 120 Min tazlina 9.77 (0-10) ng/L Delta Troponin T 1.77 (0-10) ABS# Total Protein (6.6-8.7) g/dL Albumin (3.5-5.2) g/dL Globulin (1.3-4.6) g/dL Discharge Plan Discharge Patient Disposition: Home Clinical Impression: Acute exacerbation of chronic obstructive airways disease, Hypertension Condition: Stable Prescriptions: New prednisone 10 mg tablet 20 mg PO BID 5 Days Qty: 20 RF: 0 Zithromax Z-Naren 250 mg tablet See Rx Instructions .ROUTE .COMPLEX Qty: 6 RF: 0 albuterol sulfate 90 mcg/actuation HFA aerosol inhaler 2 inh INHALATION Q4H PRN (Reason: shortness of breath or wheezing) Qty: 6.7 RF: 0 lisinopril 10 mg tablet 10 mg PO DAILY Qty: 30 RF: 0 hydrochlorothiazide 12.5 mg tablet 12.5 mg PO DAILY Qty: 30 RF: 0 amlodipine 10 mg tablet 10 mg PO DAILY Qty: 30 RF: 0 No Action aspirin 325 mg Tablet 325 mg PO DAILY RF: 0 dexamethasone 6 mg Tablet 6 mg PO DAILY RF: 0 oxycodone 15 mg Tablet 15 mg PO Q4H PRN (Reason: Pain) RF: 0 amlodipine 10 mg Tablet 10 mg PO DAILY RF: 0 lisinopril-hydrochlorothiazide 20-25 mg Tablet 1 tab PO DAILY RF: 0 azithromycin 250 mg tablet See Rx Instructions .ROUTE .COMPLEX Qty: 6 RF: 0 Discharge Orders: Discharge Order (Routine); Ordered 07/29/20 Ordered By: Angela Zepeda Discharge Diet: Advance as tolerated Discharge Activity: Increase activity as tolerated Patient Instructions: Chronic Obstructive Pulmonary Disease (ED), Hypertension (ED) Activity Restrictions/Additional Instructions: Please return to the ER immediately for any of the signs or symptoms listed on your discharge instruction sheets, worsening/changing of your symptoms, you are not getting better as quickly as expected, or for ANY other cause or concerns. I have offered and recommended to admit you to the hospital for further evaluation and care of your COPD as well as your uncontrolled high blood pressure but you have declined. Blood pressure can become even life-threatening so if you develop chest pain, leg edema, increased shortness of breath, or have any other concerns please return to the ER immediately for recheck. Be certain to fill your blood pressure medications tomorrow and resume them as previously prescribed. I will have our case management department contact you about arranging for an outpatient follow-up with a new primary care physician. Interventions: ED Discharge Assessment Last Done: 07/30/20 00:01 ED Charges Last Done: 07/30/20 00:01 Discharge Date/Time: 07/30/20 00:04 Coding Level of Care Code ED Airways Control Specialist for Chg 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 Documented by User: Angela Zepeda 07/29/20 23:38 HPI - SOB/Dyspnea General: Chief Complaint: Shortness of Breath/Dyspnea Stated Complaint: TESTED COVID+ 2 MONTHS AGO,AROUND GRNDDTR Time Seen by Provider: 07/29/20 18:01 [facility] ED PFS: Medical History (Updated 07/30/20 @ 06:53 by Alex Zuñiga DO) COPD (chronic obstructive pulmonary disease) COVID-19 Hypertension Course Vital Signs: Vital signs: Vital Signs Temperature 98.3 F 07/29/20 17:51 Pulse Rate 71 07/30/20 00:01 Respiratory Rate 16 07/30/20 00:01 Blood Pressure 108/89 07/30/20 00:01 Pulse Oximetry 91 07/30/20 00:01 MDM - SOB/Dyspnea MDM Narrative: Medical decision making narrative: 2129 -Yahaira is a 60-year-old female seen out in the waiting room by Dr. Zuñiga but ultimately because of her blood pressure cannot be discharged. Please see his note for details. To me the patient complains of cough with yellow sputum without fever the for the past 2 or 3 days. Patient has had COVID and completely recovered from that earlier this year. Patient denies any chest pain but does have a headache. Patient admits she is not been on her blood pressure medicines since April. Patient of note has a blood pressure of 255/162 here. 2299 -patient's cardiac enzymes are negative and her EKGs are negative x2. Head CT is normal. Patient is feeling better. I have been watching her on the monitor and she is never been hypoxic less than 92%. Patient appears to have a mild COPD exacerbation but there is no evidence of pneumonia. Patient has been noncompliant with her blood pressure medications for quite some time. Currently her blood pressure is 186/136. I have restarted her home medications and given her 1 dose of IV labetalol. I am going to give another dose of labetalol and I do expect will take some time for her oral medicines to begin working. The patient is adamant she wants to go home she states she cannot afford to be admitted to the hospital. Currently I see no sign of hypertensive emergency. I am going to try to get her diastolic less than 120 before leaving ideally less than 100. Patient agrees to this at this time. 2337 -patient's blood pressures currently 168/92. Her second EKG showed new new changes or findings. Patient is feeling much better and is adamant she wants to go home. I did warn her about her high blood pressure and sent home blood pressure medications for her to take in the morning and prescriptions for her bronchitis with bronchospasm as well as her previous blood pressure medications. She understands case management is going to call her to set up an outpatient appointment with a new primary care physician. She agrees to return here though if she develops any new symptoms in the interim. Lab Data: Attestation: I reviewed the patient's lab results. Labs: Lab Results 07/29/20 07/29/20 07/29/20 Range/Units 20:10 20:10 20:10 WBC 9.7 (4.0-10.0) 10^3/ uL RBC 4.99 (4.1-5.3) 10^6/u L Hgb 14.7 (11.5-15.3) g/dL Hct 46.3 (37.0-47.0) % MCV 92.8 (81-99) fL MCH 29.5 (28.0-34.0) pg MCHC 31.7 (30.0-36.0) g/dL RDW 14.8 (12.1-15.1) % Plt Count 295 (130-400) 10^3/c mm MPV 10.2 (7.4-10.4) fL Neut % (Auto) 57.5 % Lymph % (Auto) 28.0 % Gosper % (Auto) 8.9 % Eos % (Auto) 4.6 % Baso % (Auto) 0.8 % Neut # (Auto) 5.56 (1.8-7.7) 10^3/u L Lymph # (Auto) 2.7 (0.8-4.8) 10^3/u L Gosper # (Auto) 0.9 (0.2-0.9) 10^3/u L Eos # (Auto) 0.5 (0.0-0.8) 10^3/u L Baso # (Auto) 0.1 (0.0-0.1) 10^3/u L Nucleated RBC % (a uto) 0 % Nucleated RBCs # 0.0 /100WBC Specimen Type Sample Site ABG pH (7.35-7.45) ABG pCO2 (35-45) mmHg ABG pO2 (80.0-100.0) mmH g ABG HCO3 (22-26) mmol/L ABG Base Excess (-2.0-2.0) mmol/ L Elder Test Hematocrit (37-47) % O2 Delivery Device Linen Tech ID Sodium 141 (136-145) mmol/L Potassium 3.9 (3.5-5.1) mmol/L Chloride 104 (98-107) mmol/L Carbon Dioxide 26 (22-29) mmol/L Anion Gap 14.9 (5-19) BUN 23 (8-23) mg/dL Creatinine 0.8 (0.5-0.9) mg/dL GFR Calculation 72.7 L (90-130) mL/min Glucose 139 H (65-115) mg/dL Calculated Osmolal ity 298 H (285-295) mOsm/k g Calcium 10.0 (8.5-10.5) mg/dL Total Bilirubin 0.2 (0.15-1.2) mg/dL AST 17 (0-32) U/L ALT 16 (0-33) U/L Alkaline Phosphata se 80 (35-105) IU/L Troponin T Baselin e 8 (0-10) ng/L Troponin T 120 Min tazlina (0-10) ng/L Delta Troponin T (0-10) ABS# Total Protein 7.5 (6.6-8.7) g/dL Albumin 4.5 (3.5-5.2) g/dL Globulin 3.0 (1.3-4.6) g/dL 07/29/20 07/29/20 Range/Units 21:30 22:21 WBC (4.0-10.0) 10^3/ uL RBC (4.1-5.3) 10^6/u L Hgb (11.5-15.3) g/dL Hct (37.0-47.0) % MCV (81-99) fL MCH (28.0-34.0) pg MCHC (30.0-36.0) g/dL RDW (12.1-15.1) % Plt Count (130-400) 10^3/c mm MPV (7.4-10.4) fL Neut % (Auto) % Lymph % (Auto) % Gosper % (Auto) % Eos % (Auto) % Baso % (Auto) % Neut # (Auto) (1.8-7.7) 10^3/u L Lymph # (Auto) (0.8-4.8) 10^3/u L Gosper # (Auto) (0.2-0.9) 10^3/u L Eos # (Auto) (0.0-0.8) 10^3/u L Baso # (Auto) (0.0-0.1) 10^3/u L Nucleated RBC % (a uto) % Nucleated RBCs # /100WBC Specimen Type Arterial Sample Site Radial, right ABG pH 7.42 (7.35-7.45) ABG pCO2 39.7 (35-45) mmHg ABG pO2 58.6 L (80.0-100.0) mmH g ABG HCO3 25.9 (22-26) mmol/L ABG Base Excess 1.4 (-2.0-2.0) mmol/ L Elder Test Pos Hematocrit 46.4 (37-47) % O2 Delivery Device Room air Linen Tech ID Hinja Sodium (136-145) mmol/L Potassium (3.5-5.1) mmol/L Chloride (98-107) mmol/L Carbon Dioxide (22-29) mmol/L Anion Gap (5-19) BUN (8-23) mg/dL Creatinine (0.5-0.9) mg/dL GFR Calculation (90-130) mL/min Glucose (65-115) mg/dL Calculated Osmolal ity (285-295) mOsm/k g Calcium (8.5-10.5) mg/dL Total Bilirubin (0.15-1.2) mg/dL AST (0-32) U/L ALT (0-33) U/L Alkaline Phosphata se (35-105) IU/L Troponin T Baselin e (0-10) ng/L Troponin T 120 Min tazlina 9.77 (0-10) ng/L Delta Troponin T 1.77 (0-10) ABS# Total Protein (6.6-8.7) g/dL Albumin (3.5-5.2) g/dL Globulin (1.3-4.6) g/dL Imaging Data^: CXR: Attestation: I personally reviewed and interpreted this imaging study as follows: My impression: No acute cardiopulmonary findings. CT Head: Radiologist's impression: [address] [place] [address] CT Scan Report Signed Patient: Yahaira Lui Unit #: [id number] : 1960 Age/Sex: 60 / F ADM Date: Loc: ER Room/Bed: Attending Dr: Ordering Provider/Ordering MD: Angela Zepeda DO Date of Service: 07/29/20 Procedure(s): CT head wo con* [id number] Accession Number(s): [id number] Report Number: [id number] PROCEDURE INFORMATION: Exam: CT Head Without Contrast Exam date and time: 07/29/2020 9:53 PM Age: 60 years old Clinical indication: Pain; Dizziness; Headache not specified; Prior surgery; Additional info: Headache, hypertensive TECHNIQUE: Imaging protocol: Computed tomography of the head without contrast. Radiation optimization: All CT scans at this facility use at least one of these dose optimization techniques: automated exposure control; mA and/or kV adjustment per patient size (includes targeted exams where dose is matched to clinical indication); or iterative reconstruction. COMPARISON: No relevant prior studies available. RADIATION DOSE METRICS: Total DLP (mGy-cm): 835.32 FINDINGS: Brain: Normal. No hemorrhage. Unremarkable white matter. No mass effect. Cerebral ventricles: No ventriculomegaly. Bones/joints: Unremarkable. No acute fracture. Paranasal sinuses: There is mild mucosal thickening in the sinuses. No fluid levels. Mastoid air cells: Visualized mastoid air cells are well aerated. Soft tissues: Unremarkable. CT/CT head wo con* [id number] IMPRESSION: No acute intracranial abnormality. Radiation Dose CTDIVOL = (mGy): DLP = 835.32 (mGy-cm) Dictated By: Desirae Bardales Signed By: Desirae Bardales Signed Date/Time: 07/29/202241 DD/ 40 EKG Data^: EKG 1: Attestation: I personally reviewed and interpreted this EKG as follows: EKG Interpretation Date: 07/29/20 EKG interpretation time: 19:56 Interpretation: Normal sinus rhythm at 84 beats a minute, PVCs noted, nonspecific ST or T wave changes. No blocks, normal intervals. Discharge Plan Discharge Patient Disposition: Home Clinical Impression: Acute exacerbation of chronic obstructive airways disease, Hypertension Condition: Stable Prescriptions: New prednisone 10 mg tablet 20 mg PO BID 5 Days Qty: 20 RF: 0 Zithromax Z-Naren 250 mg tablet See Rx Instructions .ROUTE .COMPLEX Qty: 6 RF: 0 albuterol sulfate 90 mcg/actuation HFA aerosol inhaler 2 inh INHALATION Q4H PRN (Reason: shortness of breath or wheezing) Qty: 6.7 RF: 0 lisinopril 10 mg tablet 10 mg PO DAILY Qty: 30 RF: 0 hydrochlorothiazide 12.5 mg tablet 12.5 mg PO DAILY Qty: 30 RF: 0 amlodipine 10 mg tablet 10 mg PO DAILY Qty: 30 RF: 0 No Action aspirin 325 mg Tablet 325 mg PO DAILY RF: 0 dexamethasone 6 mg Tablet 6 mg PO DAILY RF: 0 oxycodone 15 mg Tablet 15 mg PO Q4H PRN (Reason: Pain) RF: 0 amlodipine 10 mg Tablet 10 mg PO DAILY RF: 0 lisinopril-hydrochlorothiazide 20-25 mg Tablet 1 tab PO DAILY RF: 0 azithromycin 250 mg tablet See Rx Instructions .ROUTE .COMPLEX Qty: 6 RF: 0 Discharge Orders: Discharge Order (Routine); Ordered 07/29/20 Ordered By: Angela Zepeda Discharge Diet: Advance as tolerated Discharge Activity: Increase activity as tolerated Patient Instructions: Chronic Obstructive Pulmonary Disease (ED), Hypertension (ED) Activity Restrictions/Additional Instructions: Please return to the ER immediately for any of the signs or symptoms listed on your discharge instruction sheets, worsening/changing of your symptoms, you are not getting better as quickly as expected, or for ANY other cause or concerns. I have offered and recommended to admit you to the hospital for further evaluation and care of your COPD as well as your uncontrolled high blood pressure but you have declined. Blood pressure can become even life-threatening so if you develop chest pain, leg edema, increased shortness of breath, or have any other concerns please return to the ER immediately for recheck. Be certain to fill your blood pressure medications tomorrow and resume them as previously prescribed. I will have our case management department contact you about arranging for an outpatient follow-up with a new primary care physician. Interventions: ED Discharge Assessment Last Done: 07/30/20 00:01 ED Charges Last Done: 07/30/20 00:01 Discharge Date/Time: 07/30/20 00:04 Coding Level of Care Code ED Airways Control Specialist for Gary Martin Exam Comprehensive
--- NOTE | 2020-07-29 18:10 | XR_ITS ---
WS: [id number] Portable AP upright chest, 07/29/2020 Clinical Data: dyspnea/cough Comparison: Portable chest, 06/10/2020. Findings: No nodules, masses or effusions are seen. The heart is normal. The pulmonary vascularity is not increased. No pneumonia or pneumothorax is seen. There is minimal atelectasis over the surface o f left diaphragm. The aortic arch and descending aorta show tortuosity XR/XR chest 1V portable [id number] Impression: 1. Minimal atelectasis over the surface of the left diaphragm. 2. Atherosclerosis.
--- NOTE | 2020-07-29 18:10 | ECG_ITS ---
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 Measurements Intervals [address] [place] Rate: 84 P: 68 [place]: 146 QRS: 16 QRSD: 99 T: 85 QT: 404 QTc: 479 Interpretive Statements SINUS RHYTHM WITH FREQUENT VENTRICULAR PREMATURE COMPLEXES NONSPECIFIC ST & T-WAVE ABNORMALITY ABNORMAL RHYTHM ECG Compared to ECG 05/28/2020 20:43:46 Ventricular premature complex(es) now present T-wave abnormality still present Electronically Signed On 07-29-2020 21:40:47 CDT by Celine Lemus M.D. [id number]
[2020-07-29 20:33] LABS: Basophils # 0.1 10^3/uL (0.0-0.1); Basophils % 0.8 %; Eosinophils # 0.5 10^3/uL (0.0-0.8); Eosinophils % 4.6 %; Hematocrit 46.3 % (37.0-47.0); Hemoglobin 14.7 g/dL (11.5-15.3); Lymphocytes # 2.7 10^3/uL (0.8-4.8); Mean Corpuscular HGB Conc 31.7 g/dL (30.0-36.0); Mean Corpuscular Hemoglobin 29.5 pg (28.0-34.0); Mean Corpuscular Volume 92.8 fL (81-99); Mean Platelet Volume 10.2 fL (7.4-10.4); Monocytes # 0.9 10^3/uL (0.2-0.9); Monocytes % 8.9 %; Neutrophils # 5.56 10^3/uL (1.8-7.7); Neutrophils % 57.5 %; Nucleated Red Blood Cells % 0 %; Platelet Count 295 10^3/cmm (130-400); Red Blood Count 4.99 10^6/uL (4.1-5.3); Red Cell Distribution Width 14.8 % (12.1-15.1); White Blood Count 9.7 10^3/uL (4.0-10.0)
[2020-07-29 20:56] LABS: Alanine Aminotransferase 16 U/L (0-33); Albumin Level 4.5 g/dL (3.5-5.2); Alkaline Phosphatase 80 IU/L (35-105); Anion Gap 14.9 (5-19); Aspartate Amino Transferase 17 U/L (0-32); Blood Urea Nitrogen 23 mg/dL (8-23); Carbon Dioxide 26 mmol/L (22-29); Chloride 104 mmol/L (98-107); Glomerular Filtration Rate 72.7 mL/min (90-130); Glucose 139 mg/dL (65-115); Osmolality Calculated 298 mOsm/kg (285-295); Potassium 3.9 mmol/L (3.5-5.1); Sodium 141 mmol/L (136-145); Total Bilirubin 0.2 mg/dL (0.15-1.2); Total Protein 7.5 g/dL (6.6-8.7)
--- NOTE | 2020-07-29 21:36 | CTR_ITS ---
PROCEDURE INFORMATION: Exam: CT Head Without Contrast Exam date and time: 07/29/2020 9:53 PM Age: 60 years old Clinical indication: Pain; Dizziness; Headache not specified; Prior surgery; Additional info: Headache, hypertensive TECHNIQUE: Imaging protocol: Computed tomography of the head without contrast. Radiation optimization: All CT scans at this facility use at least one of these dose optimization techniques: automated exposure control; mA and/or kV adjustment per patient size (includes targeted exams where dose is matched to clinical indication); or iterative reconstruction. COMPARISON: No relevant prior studies available. RADIATION DOSE METRICS: Total DLP (mGy-cm): 835.32 FINDINGS: Brain: Normal. No hemorrhage. Unremarkable white matter. No mass effect. Cerebral ventricles: No ventriculomegaly. Bones/joints: Unremarkable. No acute fracture. Paranasal sinuses: There is mild mucosal thickening in the sinuses. No fluid levels. Mastoid air cells: Visualized mastoid air cells are well aerated. Soft tissues: Unremarkable. CT/CT head wo con* [id number] IMPRESSION: No acute intracranial abnormality. Radiation Dose CTDIVOL = (mGy): DLP = 835.32 (mGy-cm)
[2020-07-29 21:39] LABS: ABG PCO2 39.7 mmHg (35-45); ABG PH Result 7.42 (7.35-7.45); Arterial Blood Gas Hematocrit 46.4 % (37-47); Base Excess ABG 1.4 mmol/L (-2.0-2.0); Blood Gas Allen Test Pos; Blood Gas Sample Site Radial, right; Blood Gas Sample Type Arterial; HCO3 ABG 25.9 mmol/L (22-26); Oxygen Device ROOM AIR; PO2 ABG 58.6 mmHg (80.0-100.0)
[2020-07-29 21:49] VITALS: BP 202/127; PULSE 77; RESP 17; O2SAT 94
[2020-07-29] MEDS: acetaminophen 500 mg Tablet 1000 MG PO (21:49)
[2020-07-29] MEDS: ondansetron 2 mg/ML SDV 2 mL 4 MG IVP (21:50)
[2020-07-29] MEDS: labetalol 5 mg/mL SDV 20mL 10 MG IVP ×2 (21:50→23:10)
[2020-07-29] MEDS: lisinopril 10 mg Tablet PO ×2 (21:56→23:59)
[2020-07-29] MEDS: amlodipine 10 mg Tablet PO ×2 (21:56→23:59)
[2020-07-29] MEDS: hydroCHLOROthiazide 25 mg Tablet PO ×2 (21:56→23:59)
[2020-07-29 22:00] VITALS: BP 194/118; PULSE 65; PULSE 70; RESP 18; O2SAT 89; O2SAT 94
[2020-07-29 22:09] LABS: Troponin(5th) Baseline 8 ng/L (0-10)
[2020-07-29 22:51] VITALS: BP 193/124; PULSE 79; RESP 19; O2SAT 93
[2020-07-29 22:51] LABS: Troponin 5 2HR 9.77 ng/L (0-10); Troponin 5 2HR Delta 1.77 ABS# (0-10)
[2020-07-29 23:01] VITALS: BP 186/136; PULSE 77; RESP 18; O2SAT 94
[2020-07-29] MEDS: HYDROcodone-acetaminophen 5-325 mg Tablet 1 TAB PO (23:10)
[2020-07-29 23:30] VITALS: BP 168/92; PULSE 69; RESP 18; O2SAT 92
--- NOTE | 2020-07-29 23:37 | ECG_ITS ---
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 Measurements Intervals [place] Rate: 66 P: 63 MN: 160 QRS: 7 QRSD: 106 T: 121 QT: 427 QTc: 448 Interpretive Statements SINUS RHYTHM POSSIBLE INFERIOR MYOCARDIAL INFARCTION [30 ms Q WAVE IN II/aVF], PROBABLY OLD MODERATE T-WAVE ABNORMALITY, CONSIDER LATERAL ISCHEMIA [-0.1+ mV T WAVE IN I/aVL/V5/V6] Compared to ECG 07/29/2020 19:56:34 Myocardial infarct finding now present Possible ischemia now present Ventricular premature complex(es) no longer present T-wave abnormality still present Electronically Signed On 07-30-2020 19:37:48 CDT by Jose Raul Welch M.D. [id number]
[2020-07-29] MEDS: predniSONE 20 mg Tablet 40 MG PO (23:57)
[2020-07-29] MEDS: doxycycline 100 mg Tablet PO (23:57)
[2020-07-30 00:01] VITALS: BP 108/89; PULSE 71; RESP 16; O2SAT 91
--- NOTE | 2020-07-30 10:54 | DCPLANNER ---
Addendum entered by Caitlyn Castillo 07/30/20 11:44: Patient returned nurse case management phone call, would like to have a primary care physician, but she does not have insurance. physical therapy manager will mail the financial systems analyst applications for the hospital to the patient to fill out and turn in. physical therapy manager offered to make a follow up appointment for patient, but patient stated wanted to wait until get the financial systems analyst to fill out and turn in and see where she is at. Original Note: physical therapy manager had message to speak with patient about getting established with a primary care physician. physical therapy manager called the phone number [phone], registered nurse [facility] case manager was unable to speak with patient at this time. A voicemail was left for patient to return nurse case management phone call.
--- NOTE | 2020-07-30 13:57 | PC.SOCIAL ---
Received a call from Mya Eubanks, family member of patient. She explains that patient is only here temporarily and lives out in [place]. Patient has [place] Medicaid and has an established PCP in her hometown. I did give Mya information about if patient stays here for an extended period of time, she can reach out to the [place] Medicaid office and request emergent or temporary change in [place] to [place] Medicaid. Also advised Mya that if patient does not wish to have a PCP in this area, she will need to seek medical treatment from either urgent care clinics or the ER. Mya verbalizes understanding of this. Also updated coworker Caitlyn, continuous pillowcase cutter in the ED, of this.
== END 2020-07-30 00:04 | disposition home or self-care (01) ==
PROVIDERS: Family Medicine; Emergency Provider Emergency Medicine
DX: J44.1 Chronic obstructive pulmonary disease with (acute) exacerbation (principal); I10 Essential (primary) hypertension; Z79.82 Long term (current) use of aspirin
CPT/HCPCS: 12345; 36415; 36600; 70450; 71045; 80053; 82803; 84484; 85025; 93005; 96374; 96375; 96376; 99283; 99284; J2405; J3490; J7512